=== PATIENT | male | born 1980 ===

== ENCOUNTER 2019-03-13 11:27 | Outpatient (REF) | payer BC, SELFPAY ==
[2019-03-13 21:49] LABS: HCT 41.2 % (40.0-50.0); HGB 13.8 g/dL (13.5-17.5); Mean Corp. HGB Concentration 33.5 g/dL (32.0-36.0); Mean Corpuscular Hemoglobin 28.5 pg (27.0-33.0); Mean Corpuscular Volume 84.9 fL (80-95); Mean Platelet Volume 10.8 fL (8.0-11.0); Platelet Count 218 x1000/uL (130-400); RBC 4.85 m/cumm (4.50-6.00); White Blood Cell Count 3.59 k/cumm (4.4-10.8)
[2019-03-13 22:23] LABS: Iron 71 ug/dL (50-175); Total Iron Binding Capacity 349 ug/dL (250-450); Transferrin Sat 20 % (20-55)
[2019-03-13 22:46] LABS: ALT 28 U/L (12-78); AST 28 U/L (15-37); Alkaline Phosphatase 73 U/L (46-116); Anion Gap 8.9 mmol/L (3-11); BUN 12 mg/dL (7-18); Bilirubin, Total 0.3 mg/dL (0.2-1.0); CO2 27.1 mmol/L (21.0-32.0); CREATININE 0.82 mg/dL (0.70-1.30); Calcium 9.1 mg/dL (8.5-10.1); Chloride 105 mmol/L (98-107); Ferritin 18 ng/mL (8-388); Glucose 112 mg/dL (70-100); Potassium 4.2 mmol/L (3.5-5.1); Sodium 141 mmol/L (136-145)
[2019-03-17 12:10] LABS: IgA 135 mg/dL (85-499); Interpretation SEE COMMENTS; Tissue Transglutaminase IgA 38.3 U/mL (<4.0)
== END 2019-03-13 11:47 ==
LOC: NCHCN 11:27
PROVIDERS: PCP Internal Medicine; Visit Provider Family Medicine
DX: R79.0 Abnormal level of blood mineral (principal); R19.8 Other specified symptoms and signs involving the digestive system and abdomen; Z83.79 Family history of other diseases of the digestive system
CPT/HCPCS: 80053; 82784; 83516; 85027; 82728; 83540; 83550

== ENCOUNTER 2020-05-03 14:41 | Outpatient (REF) | payer OTHER, SELFPAY ==
[2020-05-06 11:22] LABS: SARS-CoV-2 RNA Undetected (Undetected); SARS-CoV-2 Specimen Source Nasopharynx
== END 2020-05-03 15:01 ==
LOC: NCHCN 14:41
PROVIDERS: PCP Nurse Practitioner Family; Visit Provider Nurse Practitioner Family
DX: Z11.59 Encounter for screening for other viral diseases (principal)
CPT/HCPCS: U0003

== ENCOUNTER 2020-06-24 15:11 | Outpatient (REF) | payer OTHER, SELFPAY ==
[2020-06-28 09:30] LABS: SARS-CoV-2 RNA Undetected (Undetected); SARS-CoV-2 Specimen Source Nasopharynx
== END 2020-06-24 15:31 ==
LOC: NCHCN 15:11
PROVIDERS: PCP Nurse Practitioner Family; Visit Provider Family Medicine
DX: Z20.828 Contact with and (suspected) exposure to other viral communicable diseases (principal)
CPT/HCPCS: U0003